=== PATIENT | male | born 2000 | race Caucasian/White ===

== ENCOUNTER 2024-12-19 08:39 | Outpatient (OUT) | payer SELFPAY ==
--- NOTE | 2024-12-19 08:42 | US_ITS ---
The [address] [address] Patient Name: MICHEAL QUISPE MRN: [id number] date: 2000 Sex: M Assigned Patient Location: US Current Patient Location: US Accession/Order Number: [id number] Exam Date: 12/19/2024 11:47 Report Date: 12/19/2024 11:50 At the request of: CHYNA MONTES DE OCA Procedure: US scrotum SCROTAL ULTRASOUND WITH DUPLEX IMAGING. CLINICAL DATA: Left scrotal mass for the past 3 months. COMPARISON: None The right testis measures 4.4 x 2.6 x 2.3 cm . The left testis measures 4.1 x 2.9 by 2.2 cm. There is normal echogenicity. No intratesticular masses are identified. There is documentation of bilateral duplex and color Doppler testicular blood flow. The epididymal heads are similar in size. There is a simple appearing cystic structure superior to the epididymal head on the left measuring 16 x 11 x 12 mm. This correlates with the site of palpable concern. No hydrocele is present. US/US scrotum IMPRESSION: NO INTRATESTICULAR MASS OR TORSION. CYST ADJACENT TO THE EPIDIDYMAL HEAD ON THE LEFT SUPERIORLY, CORRELATING WITH THE SITE OF PALPABLE CONCERN. Impression dictated by: [place] Hernandez M.D.12/19/2024 11:50 AM Dictation Location: [place] [address] Electronically authenticated by: [id number] Y Date: 12/19/2024 11:50
== END 2024-12-19 08:40 | disposition home or self-care (01) ==
LOC: US 08:39
PROVIDERS: PCP Family Medicine; Visit Provider Family Medicine
DX: N50.89 Other specified disorders of the male genital organs (principal)
CPT/HCPCS: 76870